=== PATIENT | male | born 1985 | race Caucasian/White ===

== ENCOUNTER 2023-02-28 12:04 | Observation (INO) | payer MEDICAID ==
[~2023-02-28] VITALS: Ht 190.5 cm; Wt 158.8 kg
[2023-02-28 12:16] VITALS: BP_SYST 155; PULSE 90; RESP 19; TEMP 98.1; O2SAT 95
[2023-02-28] MEDS ORDERED: methylPREDNISolone SOD SUCC/PF 62.5 MG/ML VIAL IVP ONE (12:30)
[2023-02-28] MEDS ORDERED: IPRATROPIUM/ALBUTEROL SULFATE 3 ML AMPUL.NEB (DUONEB) INH ONE ×2 (12:30→14:45)
[2023-02-28] MEDS ORDERED: ALBUTEROL SULFATE 0.083% 2.5 MG/3 ML VIAL.NEB INH STA (12:30)
[2023-02-28 12:53] VITALS: O2SAT 94
[2023-02-28 13:04] LABS: BASOPHILS # (AUTO) 0.1 K/uL (0.0-0.2); BASOPHILS % (AUTO) 1.4 % (0.0-2.0); EOSINOPHILS # (AUTO) 0.4 K/uL (0.0-0.4); EOSINOPHILS % (AUTO) 5.3 % (0.0-4.0); HEMATOCRIT 38.6 % (36-54); HEMOGLOBIN 12.5 g/dL (14.0-18.0); LYMPHOCYTES # (AUTO) 2.4 K/uL (1.0-5.5); LYMPHOCYTES % (AUTO) 35.2 % (20.5-51.5); MEAN CORPUSCULAR HEMOGLOBIN 28 pg (27-31); MEAN CORPUSCULAR HGB CONC 33 % (32-36); MEAN CORPUSCULAR VOLUME 88 fL (79.0-98.0); MONOCYTES # (AUTO) 0.4 K/uL (0.0-1.0); MONOCYTES % (AUTO) 6.2 % (1.7-9.3); NEUTROPHILS # (AUTO) 3.5 K/uL (1.8-7.7); NEUTROPHILS % (AUTO) 51.9 % (40.0-70.0); PLATELET COUNT (AUTO) 248 K/uL (130-430); RED BLOOD CELL COUNT(AUTO) 4.41 MIL/uL (4.2-6.2); WHITE BLOOD COUNT (AUTO) 6.8 K/uL (4.8-10.8)
[2023-02-28 13:28] LABS: ANION GAP 6 (5-15); CALCIUM 8.5 mg/dL (8.4-11.0); CARBON DIOXIDE 28 mmol/L (23-29); CHLORIDE 102 mmol/L (98-107); CREATININE 0.93 mg/dL (0.55-1.30); GFR AFRICAN AMERICAN 116 mL/min (>90); GLUCOSE 102 mg/dL (74-106); POTASSIUM 3.7 mmol/L (3.5-5.1); SODIUM SERUM 136 mmol/L (136-145); UREA NITROGEN, BLOOD 10 mg/dL (8-21)
[2023-02-28 13:35] LABS: CHOLESTEROL 160 mg/dL (<200); GFR NON AFRICAN-AMERICAN 96 mL/min (>90); HDL CHOLESTEROL 46 mg/dL (>45); TRIGLYCERIDES 124 mg/dL (30-150)
[2023-02-28 13:44] LABS: INR 0.9 (0.80-1.20); PROTHROMBIN TIME 9.6 SECS (9.5-12.5)
[2023-02-28 13:49] LABS: HEMOGLOBIN A1C 6.25 % (<5.7)
[2023-02-28] MEDS ORDERED: ASPIRIN 325 MG TABLET PO ONE (14:15)
[2023-02-28 14:39] LABS: COVID19 ANTIGEN SOFIA FIA NEGATIVE (NEGATIVE)
[2023-02-28 14:48] LABS: INFLUENZA TYPE A Negative (NEGATIVE); INFLUENZA TYPE B NEGATIVE (NEGATIVE)
[2023-02-28 14:49] LABS: BILIRUBIN,URINE NEGATIVE (NEGATIVE); BLOOD, URINE NEGATIVE (NEGATIVE); CLARITY/URINE CLEAR (CLEAR); COLOR,URINE YELLOW (YELLOW); GLUCOSE,URINE NEGATIVE (NEGATIVE); KETONES,URINE NEGATIVE (NEGATIVE); LEUKOCYTE ESTERASE ,URINE NEGATIVE (NEGATIVE); NITRITE, URINE NEGATIVE (NEGATIVE); PROTEIN URINE NEGATIVE (NEGATIVE); UROBILINOGEN,URINE 0.2 (0.2-1.0)
[2023-02-28 15:00] LABS: BARBITURATE, URINE NEGATIVE (NEG <=200); BENZODIAZEPINE, URINE NEGATIVE (NEG <=150); CANNABINOID, URINE NEGATIVE (NEG <=50); COCAINE, URINE NEGATIVE (NEG <=150); METHAMPHETAMINES SCREEN,URINE NEGATIVE (NEG <=500); OPIATE, URINE NEGATIVE (NEG <=100); PHENCYCLIDINE SCREEN,URINE NEGATIVE (NEG <=25); UR TRICYCLIC ANTIDEPRESSANTS NEGATIVE (NEG <=300); URINE AMPHETAMINE NEGATIVE (NEG <=500); URINE METHADONE NEGATIVE (NEG <=200); URINE OXYCODONE SCREEN NEGATIVE (NEG <=100)
[2023-02-28] MEDS ORDERED: NACL 0.9% 1,000 ML IV ONE (15:00)
[2023-02-28] MEDS ORDERED: FLUT1DIS5 INH (17:13)
[2023-02-28] MEDS ORDERED: SPIRIVA INH (17:13)
[2023-02-28] MEDS ORDERED: FLUO40CA49 PO (17:13)
[2023-02-28 18:24] VITALS: BP_SYST 137; PULSE 97; RESP 20; TEMP 98.3; O2SAT 95
[2023-02-28] MEDS ORDERED: IPRATROPIUM/ALBUTEROL SULFATE 3 ML AMPUL.NEB (DUONEB) INH PRN (19:45)
[2023-02-28] MEDS: METHYLPREDNISOLONE SOD SUCC 40 MG/ML VIAL IVP SCH (20:20)
[2023-02-28 20:30] VITALS: O2SAT 97
[2023-02-28 20:54] VITALS: O2SAT 95
[2023-03-01] VITALS (9 sets, daily range): BP systolic 134–143; PULSE 85–103; RESP 18–20; TEMP 97–97.8; O2SAT 93–96
[2023-03-01] MEDS: METHYLPREDNISOLONE SOD SUCC 40 MG/ML VIAL IVP SCH (08:34)
[2023-03-01] MEDS ORDERED: ALBMDI INH (09:14)
[2023-03-01] MEDS ORDERED: PRED20TA PO (09:14)
[2023-03-01] MEDS: IPRATROPIUM BROM 0.5 MG/2.5 ML VIAL.NEB (ATROVENT) INH SCH ×2 (11:00→14:00)
[2023-03-01] MEDS ORDERED: ALBUTEROL SULFATE 0.083% 2.5 MG/3 ML VIAL.NEB INH SCH (13:00)
[2023-03-01] MEDS ORDERED: BUDESONIDE 0.5 MG/2 ML AMPUL.NEB INH SCH (19:00)
[2023-03-01] MEDS ORDERED: FLUTICASONE 500 mCg/SALMETEROL 50 mCg DISKUS W.DEV INH SCH (21:00)
[2023-03-02] MEDS ORDERED: FLUoxetine HCL 20 MG CAPSULE (PROzac) PO SCH (09:00)
[2023-03-02] MEDS ORDERED: TIOTROPIUM BROMIDE 18 mcg/INHALATION (CAPSULE) INH SCH (09:00)
[2023-03-02] MEDS ORDERED: FLUOXETINE HCL PO SCH (09:00)
== END 2023-03-01 15:00 | disposition home or self-care (01) ==
LOC: SED 12:04 → STU 14:47
PROVIDERS: ADMIT General Practice; ATTEND General Practice
DX: J45.901 Unspecified asthma with (acute) exacerbation (principal); Z20.822 Contact with and (suspected) exposure to COVID-19; F32.A Depression, unspecified; I10 Essential (primary) hypertension; R29.810 Facial weakness; E66.01 Morbid (severe) obesity due to excess calories; Z79.899 Other long term (current) drug therapy
CPT/HCPCS: 96361 ×2; 96374; 96376 ×2; 80307; 80061; 80048; 81001; 83037; 85025; 85610; 85730; 86886; 86900; 86901; 84484; 36415; 93005; 71045; 70450; 70496; 70498; 94664; 94760 ×2; 99291; 81003; 87804 ×2; 87426; 94640; J1030 ×2; J2930; G0378 ×2; 76376

== ENCOUNTER 2023-11-08 20:05 | Inpatient (IN) | payer MEDICAID ==
[~2023-11-08] VITALS: Ht 188 cm; Wt 158.8 kg
[~2023-11-08 20:05] MED LIST: ALBMDI INH; FLUO40CA49 PO; FLUT1DIS5 INH; PRED20TA PO; SPIRIVA INH
[2023-11-08 20:19] VITALS: BP_SYST 159; PULSE 105; RESP 20; TEMP 97.7; O2SAT 96
--- NOTE | 2023-11-08 20:28 | NUR ---
Patient triaged and placed in waiting room. VSS and patient appears in no acute distress at this time. Accompanied by SELF, awaiting available bed, and MD notified of need for MSE.
--- NOTE | 2023-11-08 21:33 | NUR ---
PT BIB SELF FROM HOME C/O BUMP UNDER HIS TESTICULAR X3DAYS. PT STATED IT IS PAINFUL 4/10 AND HE TOOK PAIN MEDICATIONS AT HOME. DENIES N/V/D. AFEBRILE. AAOX4. FOLLOWS COMMANDS. HX ASTHMA, BIPOLAR DISORDER AND ECZEMA.
[2023-11-09] VITALS (7 sets, daily range): BP systolic 121–137; PULSE 69–92; RESP 18–20; TEMP 97–98.2; O2SAT 96–100
--- NOTE | 2023-11-09 00:02 | NUR ---
Patient to ER bed 7 to gown for evaluation. Side rails up. Report RECIEVED FROM SHARRON BERNAL
--- NOTE | 2023-11-09 00:03 | NUR ---
ER at bedside examining patient.
--- NOTE | 2023-11-09 00:23 | NUR ---
LAB AT BEDSIDE
[2023-11-09 00:32] LABS: BASOPHILS # (AUTO) 0.2 K/uL (0.0-0.2); BASOPHILS % (AUTO) 2.5 % (0.0-2.0); EOSINOPHILS # (AUTO) 0.2 K/uL (0.0-0.4); HEMATOCRIT 36.9 % (36-54); HEMOGLOBIN 12.6 g/dL (14.0-18.0); LYMPHOCYTES # (AUTO) 1.9 K/uL (1.0-5.5); LYMPHOCYTES % (AUTO) 23.4 % (20.5-51.5); MEAN CORPUSCULAR HEMOGLOBIN 30 pg (27-31); MEAN CORPUSCULAR HGB CONC 34 % (32-36); MEAN CORPUSCULAR VOLUME 88 fL (79.0-98.0); MONOCYTES # (AUTO) 0.4 K/uL (0.0-1.0); MONOCYTES % (AUTO) 4.9 % (1.7-9.3); NEUTROPHILS # (AUTO) 5.4 K/uL (1.8-7.7); NEUTROPHILS % (AUTO) 67.2 % (40.0-70.0); PLATELET COUNT (AUTO) 222 K/uL (130-430); RED CELL DISTRIBUTION WIDTH 15.3 % (9.0-15.0)
--- NOTE | 2023-11-09 00:51 | NUR ---
Admit bed requested Patient will be admitted to care of . Admitted to MEDSURG unit. Diagnosis [facility] Inpatient (Yes or No) Y Observation (Yes or No) N Orientation concerns or request close to nursing station (Yes or No) N Covid Status N On vent or bipap N Isolation requirements N Needs a sitter N From Home (Yes or if No enter name of facility) Y Requires Dialysis (Yes or No) N Med Rec Completed (Yes of No) Y
[2023-11-09 00:58] LABS: BILIRUBIN,URINE NEGATIVE (NEGATIVE); BLOOD, URINE NEGATIVE (NEGATIVE); CLARITY/URINE CLEAR (CLEAR); COLOR,URINE YELLOW (YELLOW); GLUCOSE,URINE NEGATIVE (NEGATIVE); KETONES,URINE NEGATIVE (NEGATIVE); LEUKOCYTE ESTERASE ,URINE NEGATIVE (NEGATIVE); NITRITE, URINE NEGATIVE (NEGATIVE); PH,URINE 6.5 (5.0-8.0); PROTEIN URINE NEGATIVE (NEGATIVE)
[2023-11-09 01:01] LABS: ALBUMIN 3.4 g/dL (3.4-4.8); BILIRUBIN,DIRECT 0.1 mg/dL (0.0-0.3); CALCIUM 9.1 mg/dL (8.4-11.0); CREATININE 1.05 mg/dL (0.55-1.30); POTASSIUM 3.4 mmol/L (3.5-5.1); TOTAL BILIRUBIN 0.4 mg/dL (0.0-1.0); TOTAL PROTEIN, SERUM 7.8 g/dL (6.4-8.3)
--- NOTE | 2023-11-09 01:17 | NUR ---
# 20 gauge angiocath placed to LEFT AC. Use of asceptic technique. Opsite placed over site. Blood return noted. Blood for lab drawn from site. Flushed with 10 cc of normal saline. No evidence of infiltration noted. Patient tolerated well.
--- NOTE | 2023-11-09 01:39 | NUR ---
Patient will be admitted to care of [facility]. Admitted to MEDSURG unit. Will go to room 106A. Belongings list completed. Complete and up to date summary report printed. SBAR report to be given at bedside TO ART BERNAL with opportunity for questions.
--- NOTE | 2023-11-09 02:00 | NUR ---
ADMISSION: The patient, CHRIS SALDANA, 38 y/o, M admitted by DIOGO FREGOSO MD, was given written information regarding hospital policies, unit procedures and contact persons. Patient arrived to the unit by wheelchair. Patient ambulate to his bed with a steady gait. Patient aox4. Patient does complain of mild pain on his scrotum area. patient was oriented to his room. Vitals and physical assessment performed. Call aiken within reach. Valuables were checked and secured at bedside with patient.
[2023-11-09] MEDS: D5/0.45 NS 1,000 ML IV ONE (02:05)
--- NOTE | 2023-11-09 02:56 | NUR ---
PAGED: PT CALLED AND C/O MODERATE PAIN , NOTICED NO PAIN MEDICATION ORDER FOR THE PT , PAGED
--- NOTE | 2023-11-09 03:13 | NUR ---
2nd page for dr oquendo
--- NOTE | 2023-11-09 03:24 | NUR ---
3rd page for doctor paliwal for orders
[2023-11-09] MEDS ORDERED: HYDROcodone/ACETAMIN 10-325 MG TAB PO PRN (03:30)
--- NOTE | 2023-11-09 03:31 | NUR ---
MD CALLED BACK : DR FREGOSO ,Flory CALLED BACK , NOTIFIED MD THAT PT C/O PAIN AND HE IS NPO , MD ORDERED NPO EXCEPT MEDS , AND CHANGED IV FLUID SCHEDULED . ALSO MD ORDERED PAIN MEDICATION . ORDERS ENTERED AND NOTIFIED PRIMARY RN
[2023-11-09] MEDS: D5/0.45 NS 1,000 ML IV SCH (03:39)
[2023-11-09] MEDS: HYDROcodone/ACETAMIN 5-325 MG TAB (NORCO/ VICODIN) PO PRN (03:47)
--- NOTE | 2023-11-09 07:26 | NUR ---
closing note bedside shift report given. patient resting in bed. Not signs of acute distress, Patient call aiken within reach. the plan for today is to wait for the urologists to see the patient
--- NOTE | 2023-11-09 08:00 | NUR ---
LATE ENTRY DUE TO PT CARE OPENING NOTES PT AWAKE . A/O X4 . CALL LIGHT IN REACH . BED LOW ,LOCKED . PT REFUSE BED ALARM . PLAN OF CARE EXPLAINED AND UNDERSTOOD WELL
--- NOTE | 2023-11-09 09:11 | NUR ---
CONSULTATION PAGED REASON FOR CONSULTATION: [facility] WAS CONSULT CALLED? Y PERSON WHO WAS NOTIFIED: MIN CONSULTING PHYSICIAN: TELMA SAAB FLIGHT PHYSICIAN SPECIALTY:UROLOGY FLIGHT PHYSICIAN PHONE NUMBER:[phone] REQUESTING PHYSICIAN: DIOGO MALDONADO
[2023-11-09] MEDS ORDERED: ONDANSETRON HCL 4 MG/2 ML VIAL IVP PRN (09:45)
[2023-11-09] MEDS ORDERED: LORazepam 2 MG/ML VIAL IVP PRN (09:45)
[2023-11-09] MEDS ORDERED: SULF1TAB48 PO (09:52)
[2023-11-09] MEDS ORDERED: HYDR-3917 PO (09:52)
--- NOTE | 2023-11-09 10:00 | NUR ---
DR DIOGO FREGOSO ASSESSING PATIENT AND DISCUSSING PLAN OF CARE
[2023-11-09] MEDS ORDERED: ACETAMINOPHEN 325 MG TABLET PO PRN (10:15)
[2023-11-09] MEDS: ACETAMINOPHEN 325 MG TABLET PO PRN (10:31)
--- NOTE | 2023-11-09 13:15 | NUR ---
DISCHARGE ALL DISCHARGE INSTURCTIONS DISCUSSED WITH PATIENT AND UNDERSTOOD. COPY SIGNED AND GIVEN .I/V REMOVED AND PRESSURE DSG APPLIED . WHEELED TI CAR AND SENT HOME SAFE IN PRIVATE CAR
[2023-11-09] MEDS: NORMAL SALINE 5 ML DISP.SYRIN IVF SCH (18:08)
== END 2023-11-09 13:15 | disposition home or self-care (01) | DRG 501 ==
LOC: SED 20:05 → SMU 11-09 00:47
PROVIDERS: ADMIT Preventive Medicine Preventive Medicine/Occupational Environmental Medicine; ATTEND Preventive Medicine Preventive Medicine/Occupational Environmental Medicine
DX: N43.3 Hydrocele, unspecified (principal); D64.9 Anemia, unspecified; E87.6 Hypokalemia; E66.9 Obesity, unspecified; J45.909 Unspecified asthma, uncomplicated; Z68.41 Body mass index [BMI] 40.0-44.9, adult; R73.9 Hyperglycemia, unspecified; R74.01 Elevation of levels of liver transaminase levels; Z88.8 Allergy status to other drugs, medicaments and biological substances
CPT/HCPCS: 36415; 76870; 80048; 80076; 81001; 81003; 85025; 99285